=== PATIENT | female | born 1970 | race Two or more races ===

== ENCOUNTER 2023-12-30 16:20 | Inpatient (IN) | payer MEDICAID, OTHER ==
[~2023-12-30] VITALS: Ht 157.5 cm; Wt 65.0 kg
[2023-12-30 17:34] LABS: Urine Bacteria FEW /hpf (None Seen); Urine Blood TRACE /uL (Negative); Urine Budding Yeast FEW /hpf (None Seen); Urine Clarity Turbid (Clear); Urine Color Colorless (Yellow); Urine Protein, UAD 2+ (Negative); Urine Specific Gravity 1.006 (1.001-1.035); Urine Urobilinogen Normal (Negative); Urine WBC 71 /hpf (0 - 5)
[2023-12-30] MEDS: hydrALAZINE HCL 20 MG/ML VL IV ONE ×2 (17:34→20:35)
[2023-12-30 17:38] VITALS: PULSE 95; RESP 14; O2SAT 96
[2023-12-30 18:21] LABS: Basophils # (auto) 0.1 10 ^3/uL (0-0.2); Basophils % (auto) 0.8 % (0.0-2.0); Eosinophils # (auto) 0.1 10 ^3/uL (0-0.8); Eosinophils % (auto) 2.1 % (0.0-7.0); Hematocrit 41.3 % (36.0-46.0); Hemoglobin 14.1 g/dL (12.2-16.2); Lymphocytes # (auto) 2.2 10 ^3/uL (0.4-5.4); Lymphocytes % (auto) 32.9 % (10.0-50.0); Mean Corpuscular Hemoglobin 27.2 pg (28.0-32.0); Mean Corpuscular Hgb Conc. 34.2 g/dL (32.0-36.0); Mean Corpuscular Volume 79.6 fL (80.0-100.0); Monocytes # (auto) 0.4 10 ^3/uL (0-1.3); Monocytes % (auto) 5.3 % (0.0-12.0); Neutrophils # (auto) 3.9 10 ^3/uL (1.6-8.6); Neutrophils % (auto) 58.9 % (37.0-80.0); Platelet Count (auto) 261 10^3/uL (140-450); Red Blood Cells 5.19 10^6/uL (4.0-5.20); Red Cell Distribution Width 18.7 % (11.8-14.3); White Blood Cell 6.6 10^3/uL (4.4-10.8)
[2023-12-30 18:24] LABS: Alanine Aminotransferase 18 U/L (7-40); Albumin 4.3 g/dL (3.2-4.8); Alkaline Phosphatase 64 U/L (46-116); Anion Gap 6 (5-15); Aspartate Aminotransferase 16 U/L (13-40); Bilirubin, Total 0.5 mg/dL (0.2-1.0); Blood Urea Nitrogen 27 mg/dL (9-23); Carbon Dioxide 28 mmol/L (20-30); Chloride 106 mmol/L (98-107); Glucose 104 mg/dL (74-106); Potassium 3.2 mmol/L (3.5-5.1); Sodium 140 mmol/L (136-145); Total Protein 6.8 g/dL (5.7-8.2)
[2023-12-30] MEDS: LABETALOL HCL 20 MG/4 ML VL IV ONE (18:39)
[2023-12-30 19:55] VITALS: PULSE 85; RESP 14; O2SAT 95
[2023-12-30] MEDS: ASPirin 325 MG TAB PO ONE (20:34)
[2023-12-30] MEDS: NITROGLYCERIN 2% OINT 1GM PKG TD ONE (20:37)
[2023-12-30] MEDS: cefTRIAXone 1GM/50ML D5W 50 ML IV ONE (21:55)
[2023-12-30] MEDS: POTASSIUM EFFERVESENT TAB 25 MEQ PO ONE (21:55)
[2023-12-30] MEDS: ONDANSETRON ODT 4 MG TAB PO ONE (22:17)
[2023-12-31] MEDS: ONDANSETRON HCL 4 MG/2 ML VIAL IV ONE (00:10)
[2023-12-31] MEDS: NITROGLYCERIN 50MG/250ML 250 ML IV ONE (00:11)
[2023-12-31] MEDS ORDERED: hydrALAZINE HCL 20 MG/ML VL IV PRN (01:45)
[2023-12-31] MEDS ORDERED: DOCUSATE SOD 100 MG CAP PO PRN (01:45)
[2023-12-31] MEDS ORDERED: HYDROcodone-ACET 5/325MG TAB PO PRN (01:45)
[2023-12-31] MEDS ORDERED: ONDANSETRON HCL 4 MG/2 ML VIAL IV PRN (01:45)
[2023-12-31] MEDS: SODIUM CHLORIDE 0.9% 1,000 ML IV SCH (02:51)
[2023-12-31] MEDS: ACETAMINOPHEN 325 MG TAB PO PRN (05:14)
[2023-12-31] MEDS ORDERED: NITROGLYCERIN 0.4 MG SL TAB SL PRN (05:30)
[2023-12-31] MEDS ORDERED: MORPHINE SULFATE INJ 2 MG/ml SYRG IV PRN (05:30)
[2023-12-31 07:10] LABS: Basophils # (auto) 0 10 ^3/uL (0-0.2); Basophils % (auto) 0.5 % (0.0-2.0); Eosinophils # (auto) 0 10 ^3/uL (0-0.8); Hematocrit 37.9 % (36.0-46.0); Lymphocytes # (auto) 1.1 10 ^3/uL (0.4-5.4); Lymphocytes % (auto) 11.7 % (10.0-50.0); Mean Corpuscular Hemoglobin 27.2 pg (28.0-32.0); Mean Corpuscular Hgb Conc. 34.2 g/dL (32.0-36.0); Mean Corpuscular Volume 79.5 fL (80.0-100.0); Monocytes # (auto) 0.5 10 ^3/uL (0-1.3); Neutrophils # (auto) 7.5 10 ^3/uL (1.6-8.6); Neutrophils % (auto) 82.8 % (37.0-80.0); Platelet Count (auto) 250 10^3/uL (140-450); Red Blood Cells 4.77 10^6/uL (4.0-5.20); Red Cell Distribution Width 18.9 % (11.8-14.3); White Blood Cell 9.1 10^3/uL (4.4-10.8)
[2023-12-31 07:23] LABS: Alanine Aminotransferase 13 U/L (7-40); Albumin 4.1 g/dL (3.2-4.8); Alkaline Phosphatase 55 U/L (46-116); Anion Gap 9 (5-15); Aspartate Aminotransferase 14 U/L (13-40); BUN/Creatinine Ratio 14.1 (10.0-20.0); Blood Urea Nitrogen 22 mg/dL (9-23); Calcium 9.4 mg/dL (8.7-10.4); Carbon Dioxide 25 mmol/L (20-30); Chloride 106 mmol/L (98-107); Glucose 105 mg/dL (74-106); Potassium 3.3 mmol/L (3.5-5.1); Sodium 140 mmol/L (136-145)
[2023-12-31 07:24] LABS: Bilirubin, Total 0.6 mg/dL (0.2-1.0); Total Protein 6.6 g/dL (5.7-8.2)
[2023-12-31 07:30] VITALS: PULSE 85; RESP 16
[2023-12-31] MEDS: FAMOTIDINE (10MG/ML) 2ML VL IV SCH (09:51)
[2023-12-31] MEDS: NIFEdipine ER 30 MG TAB PO SCH ×2 (09:52→10:30)
[2023-12-31] MEDS: METOPROLOL TARTRATE 50 MG TAB PO SCH (09:52)
[2023-12-31] MEDS: POTASSIUM CHL 20 Meq TABLET PO ONE (09:53)
[2023-12-31] MEDS: ASPirin 81 mg TAB PO SCH (09:54)
[2023-12-31] MEDS ORDERED: FAMOTIDINE (10MG/ML) 2ML VL IV SCH (10:00)
[2023-12-31] MEDS ORDERED: cloNIDine 0.2 mg/24hr 7DAY PATCH TD PRN (10:30)
[2023-12-31] MEDS ORDERED: cloNIDine HCL 0.1 MG TAB PO PRN (11:00)
[2023-12-31] MEDS: hydrALAZINE HCL 25 MG TAB PO SCH (13:39)
[2023-12-31 16:10] LABS: Triglycerides 83 mg/dL (< 150)
[2023-12-31 16:11] LABS: LDL Cholesterol 135 mg/dL (< 100)
[2023-12-31 16:12] LABS: Cholesterol 200 mg/dL (< 200); HDL Cholesterol 50 mg/dL (40-59)
[2023-12-31 19:30] VITALS: PULSE 100; RESP 18; O2SAT 98
[2023-12-31 22:10] LABS: COVID19 ANTIGEN SOFIA FIA NEGATIVE (NEGATIVE); Rapid Influenza A Negative (Negative); Rapid Influenza B Negative (Negative)
[2023-12-31] MEDS: CARVEDILOL 12.5 MG TAB PO SCH (22:32)
[2023-12-31] MEDS: cefTRIAXone 1GM/50ML D5W 50 ML IV SCH (22:33)
[2024-01-01] VITALS (7 sets, daily range): BP systolic 109–138; BP diastolic 57–84; PULSE 78–91; RESP 16–18; TEMP 98–99.4; O2SAT 95–96
[2024-01-01 05:55] LABS: Basophils # (auto) 0.1 10 ^3/uL (0-0.2); Basophils % (auto) 0.5 % (0.0-2.0); Eosinophils # (auto) 0.1 10 ^3/uL (0-0.8); Eosinophils % (auto) 0.8 % (0.0-7.0); Hematocrit 37.5 % (36.0-46.0); Hemoglobin 12.6 g/dL (12.2-16.2); Lymphocytes # (auto) 2.7 10 ^3/uL (0.4-5.4); Lymphocytes % (auto) 23.9 % (10.0-50.0); Mean Corpuscular Hemoglobin 27.2 pg (28.0-32.0); Mean Corpuscular Hgb Conc. 33.7 g/dL (32.0-36.0); Mean Corpuscular Volume 80.5 fL (80.0-100.0); Monocytes # (auto) 0.7 10 ^3/uL (0-1.3); Neutrophils # (auto) 7.7 10 ^3/uL (1.6-8.6); Neutrophils % (auto) 68.8 % (37.0-80.0); Nucleated Red Blood Cells % 0.1 %; Platelet Count (auto) 254 10^3/uL (140-450); Red Blood Cells 4.65 10^6/uL (4.0-5.20); Red Cell Distribution Width 18.9 % (11.8-14.3); White Blood Cell 11.2 10^3/uL (4.4-10.8)
[2024-01-01 06:19] LABS: Alanine Aminotransferase 12 U/L (7-40); Albumin 4.1 g/dL (3.2-4.8); Alkaline Phosphatase 54 U/L (46-116); Anion Gap 8 (5-15); Aspartate Aminotransferase 12 U/L (13-40); BUN/Creatinine Ratio 11.2 (10.0-20.0); Blood Urea Nitrogen 21 mg/dL (9-23); Calcium 9.4 mg/dL (8.7-10.4); Carbon Dioxide 23 mmol/L (20-30); Chloride 108 mmol/L (98-107); Glucose 92 mg/dL (74-106); Potassium 3.7 mmol/L (3.5-5.1); Sodium 139 mmol/L (136-145)
[2024-01-01 06:20] LABS: Bilirubin, Total 0.7 mg/dL (0.2-1.0); Total Protein 6.7 g/dL (5.7-8.2)
[2024-01-01] MEDS: CARVEDILOL 12.5 MG TAB PO SCH (10:45)
[2024-01-01] MEDS: NIFEdipine ER 30 MG TAB PO SCH (10:45)
[2024-01-01] MEDS: SODIUM CHLORIDE 0.9% 1,000 ML IV SCH (11:31)
[2024-01-01] MEDS ORDERED: NIFE1TAB31 PO (13:05)
[2024-01-01] MEDS ORDERED: ATOR20TA50 PO (13:05)
[2024-01-01] MEDS ORDERED: ASPI-325 PO (13:05)
[2024-01-01] MEDS ORDERED: CEPH250C PO (14:08)
[2024-01-01] MEDS ORDERED: ATORVASTATIN 20 MG TAB PO SCH (22:00)
== END 2024-01-01 15:40 | disposition home or self-care (01) | DRG 194 ==
LOC: EDBD 16:20 → ER 16:20 → TELE 12-31 05:27 → TELE-CENTR 12-31 23:51
PROVIDERS: ADMIT Nurse Practitioner Family; ATTEND Internal Medicine
DX: I11.0 Hypertensive heart disease with heart failure (principal); N17.0 Acute kidney failure with tubular necrosis; I21.A1 Myocardial infarction type 2; I50.33 Acute on chronic diastolic (congestive) heart failure; I16.0 Hypertensive urgency; Z20.822 Contact with and (suspected) exposure to COVID-19; N39.0 Urinary tract infection, site not specified; E87.6 Hypokalemia; Z79.899 Other long term (current) drug therapy
CPT/HCPCS: 36415; 70450; 71045; 80053; 80061; 81001; 82088; 83036; 83735; 83835; 83880; 84244; 84443; 84484; 85025; 87086; 87426; 87804; 93005; 93306; 93976; 99291; G0378; J2405; J3490; Q0162

== ENCOUNTER 2024-05-09 17:24 | Inpatient (IN) | payer MEDICAID ==
[~2024-05-09] VITALS: Ht 157.5 cm; Wt 65.9 kg
[~2024-05-09 17:24] MED LIST: ASPI-325 PO; ATOR20TA50 PO; CEPH250C PO; NIFE1TAB31 PO
--- NOTE | 2024-05-09 17:47 | ED.PDOC ---
HPI Comments 53 y/o F brought in by ambulance presents to the ED for CC of chest pain. Per EMS, emergency medical services were called to [facility] due to patient having a hypertensive crisis with associated symptoms of chest pain, SOB, palpitations, and blurred vision [id number]. EMS relays that patient blood pressure upon arrival to scene was 216/119: 1 nitrile and aspirin was given en route to ED. Patient states, that symptoms began following medication which she has recently started to control her hypertension. Patient denies any social history. Patient denies fever, cough, headache or N/V/D. No other symptoms or modifying factors at this time. Time Seen by MD: 17:20 Primary Care Provider: [facility] Reviewed Notes: Nurses Notes, Plastic Tool Maker Notes, Medications, Allergies Allergies: Coded Allergies: NO KNOWN ALLERGIES (Unverified , 12/30/23) Home Meds Active Scripts Cephalexin (KEFLEX CAPSULE) 250 Mg Cp, 2 CAP PO BID for 5 Days, #20 CAP Prov:DENISSE JARVIS DO 01/01/24 Aspirin (Aspirin Low Dose) 81 Mg Tab, 81 MG PO DAILY for 30 Days, #30 TAB 0 Refills Prov:DENISSE JARVIS DO 01/01/24 Atorvastatin Calcium (ATORVASTATIN CALCIUM) 20 Mg Tab, 40 MG PO HS for 30 Days, #60 TAB 1 Refill Prov:DENISSE JARVIS DO 01/01/24 Nifedipine (Nifedipine Er) 30 Mg Tab, 60 MG PO DAILY for 30 Days, #60 TAB 1 Refill Prov:DNEISSE JARVIS DO 01/01/24 Information Source: Patient, Emergency Med Personnel Mode of Arrival: EMS Severity: Moderate Timing: Hours Duration: Since onset Prehospital treatment: 12 Lead EKG, Accucheck Location: Chest (L) Radiation: No Radiation Quality: Aching Onset: At Rest Cardiac Risk Factors: HTN PE Risk Factors: None History of: None Modifying Factors: Nothing Associated Signs and Symptoms: Palpitations Past Medical History PAST MEDICAL HISTORY: CKF, Denies Surgical History (Other): right foot surgery 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 History Family History Family History: Unknown Social History Smoker: Non-Smoker Alcohol: Denies ETOH Use Drugs: Denies Drug Use Lives In: Home Constitutional: denies: chills, diaphoresis, fatigue, fever, malaise, sweats, weakness, others EENTM: denies: blurred vision, double vision, ear bleeding, ear discharge, ear drainage, ear pain, ear ringing, eye pain, eye redness, hearing loss, mouth pain, mouth swelling, nasal discharge, nose bleeding, nose congestion, nose pain, photophobia, tearing, throat pain, throat swelling, voice changes, others Respiratory: denies: cough, hemoptysis, orthopnea, SOB at rest, shortness of breath, SOB with excertion, stridor, wheezing, others Cardiovascular: reports: chest pain, palpitations; denies: dizzy spells, diaphoresis, Dyspnea on exertion, edema, irregular heart beat, left arm pain, lightheadedness, PND, syncope, others Gastrointestinal: denies: abdomen distended, abdominal pain, blood streaked bowels, constipated, diarrhea, dysphagia, difficulty swallowing, hematemesis, melena, nausea, poor appetite, poor fluid intake, rectal bleeding, rectal pain, vomiting, others Genitourinary: denies: abnormal vagina bleeding, burning, dyspareunia, dysuria, flank pain, frequency, hematuria, incontinence, pain, , vagina discharge, urgency, others Neurological: denies: dizziness, fainting, headache, left sided numbness, left sided weakness, numbness, paresthesia, pre-existing deficit, right sided numbness, right sided weakness, seizure, speech problems, tingling, tremors, weakness, others Musculoskeletal: denies: back pain, gout, joint pain, joint swelling, muscle pain, muscle stiffness, neck pain, others Integumetry: denies: bruises, change in color, change in hair/nails, dryness, laceration, lesions, lumps, rash, wounds, others Allergic/Immunocompromised: denies: Difficulty Healing, Frequent Infections, Hives, Itching, others Hematologic/Lymphatic: denies: anemia, blood clots, easy bleeding, easy bruising, swollen glands, others Endocrine: denies: excessive hunger, excessive sweating, excessive thirst, excessive urination, flushing, intolerance to cold, intolerance to heat, unexplained weight gain, unexplained weight loss, others Psychiatric: denies: anxiety, bipolar disorder, depression, hopeless, panic disorder, schizophrenia, sleepless, suicidal, others All Other Systems: Reviewed and Negative Physical Exam General Appearance: Mild Distress HEENT: Normal ENT Inspection, Pharynx Normal, TMs Normal Neck: Full Range of Motion, Non-Tender, Normal, Normal Inspection Respiratory: Chest Non-Tender, Lungs Clear, No Accessory Muscle Use, No Respiratory Distress, Normal Breath Sounds Cardiovascular: No Edema, No JVD, No Murmur, No Gallop, Normal Peripheral Pulses, Regular Rate/Rhythm Breast Exam: Deferred Gastrointestinal: No Organomegaly, Non Tender, No Pulsatile Mass, Normal Bowel Sounds, Soft Genitalia: Deferred Pelvic: Deferred Rectal: Deferred Extremities: No calf tenderness, Normal capillary refill, Normal inspection, Normal range of motion, Non-tender, No pedal edema Musculoskeletal : Apperance: Normal Neurologic: Alert, gateman II-XII nml as Tested, No Motor Deficits, Normal Affect, Normal Mood, No Sensory Deficits Cerebellar Function: Normal Reflexes: Normal Skin: Dry, Normal Color, Warm Lymphatic: No Adenopathy EKG EKG : Pulse Rate (adult): 78 [place]: Normal Cardiac Rhythm: NSR Block: None Hypertrophy: LVH ST: Normal Was a procedure done? Was a procedure done?: No CP Differential Dx Differential Diagnosis: N/A Differential Diagnosis: HTN Accelerated Differential Diagnosis: Angina, Chest Wall Pain, Costochondritis X-Ray, Labs, Meds, VS Vital Signs Date Time Temp Pulse Resp B/P (MAP) Pulse Ox O2 Delivery O2 Flow Rate FiO2 05/09/24 20:27 75 05/09/24 18:37 81 05/09/24 17:47 78 05/09/24 17:31 99 Room Air* 0 21 05/09/24 17:31 97.7 82 18 178/114 (135) 99 05/09/24 17:26 78 Lab Test 05/09/24 19:00 05/09/24 17:39 Range/Units Troponin I High Sensitivity 123 *H 125 *H </=34 ng/L White Blood Count 7.4 4.4-10.8 10^3/uL Red Blood Count 5.25 H 4.0-5.20 10^6/uL Hemoglobin 15.1 12.2-16.2 g/dL Hematocrit 44.8 36.0-46.0 % Mean Corpuscular Volume 85.4 80.0-100.0 fL Mean Corpuscular Hemoglobin 28.8 28.0-32.0 pg Mean Corpuscular Hemoglobin Concent 33.7 32.0-36.0 g/dL Red Cell Distribution Width 15.4 H 11.8-14.3 % Platelet Count 325 140-450 10^3/uL Mean Platelet Volume 8.4 6.9-10.8 fL Neutrophils (%) (Auto) 51.5 37.0-80.0 % Lymphocytes (%) (Auto) 29.0 10.0-50.0 % Monocytes (%) (Auto) 5.9 0.0-12.0 % Eosinophils (%) (Auto) 12.6 H 0.0-7.0 % Basophils (%) (Auto) 1.0 0.0-2.0 % Neutrophils # (Auto) 3.8 1.6-8.6 10 ^3/uL Lymphocytes # (Auto) 2.1 0.4-5.4 10 ^3/uL Monocytes # (Auto) 0.4 0-1.3 10 ^3/uL Eosinophils # (Auto) 0.9 H 0-0.8 10 ^3/uL Basophils # (Auto) 0.1 0-0.2 10 ^3/uL Nucleated Red Blood Cells 0.2 % Sodium Level 140 136-145 mmol/L Potassium Level 3.1 L 3.5-5.1 mmol/L Chloride Level 104 98-107 mmol/L Carbon Dioxide Level 25 20-31 mmol/L Anion Gap 11 5-15 Blood Urea Nitrogen 27 H 9-23 mg/dL Creatinine 1.31 H 0.550-1.02 mg/dL Glomerular Filtration Rate Calc 49 >90 mL/min BUN/Creatinine Ratio 20.6 H 10.0-20.0 Serum Glucose 89 74-106 mg/dL Calcium Level 10.4 8.7-10.4 mg/dL Magnesium Level 2.2 1.6-2.6 mg/dL CXR: FINDINGS: Lines and Tubes: None Lungs: No focal consolidation. Pleura: No effusion. No pneumothorax. Cardiomediastinal contours: Unremarkable Bones: No acute osseous abnormality. IMPRESSION: No acute cardiopulmonary disease. ATED BY: EMELI SAGE DO DICTATED DATE/TIME: 05/09/241823 SIGNED BY: EMELI SAGE DO SIGNED DATE/TIME: 01/21/25 1824 CC: The 1st troponin came back at 125 The 2nd troponin came back at 123 The patient's CBC is within normal limits The chemistry panel shows a potassium of 3.1 The rest of the chemistry panel is within normal limits The patient was being admitted to the hospitalist A cardiology consult will be obtained [facility] has been contacted and they have given us authorization for admitting this patient The authorization #[id number] The patient is being admitted Images Reviewed?: Images reviewed and evaluated by me Time of 1ST Reevaluation: 17:50 Reevaluation 1ST: Unchanged Patient Education/Counseling: Diagnosis, Treatment, Prognosis Family Education/Counseling: No Family Present Departure 1 Departure Time of Disposition: 20:29 Impression: Primary Impression: Acute myocardial ischemia Additional Impression: Elevated troponin Disposition: ADMITTED INPATIENT Admit to: [facility] Condition: Fair Critical Care Note Critical Care Time?: Yes (45 min-critical care time only) Stability Stability form required: Yes Unstable for transfer: Telemetry monitoring (Telemetry monitoring required), ED Physician Assesment (Clinical assesment) Heart Score Heart Score: Heart Score Response (Comments) Value History Moderate Suspicious 1 EKG Repolarization Disturb 1 Age 45-64 1 Risk Factors 1 or 2 risk factors 1 Troponin 1-2 x's Normal limit 1 Total 5 I personally scribed for LIS ORANTES MD ([email or web address]) on 05/09/24 at 17:47. Electronically submitted by Caity Asencio ([email or web address]). I personally scribed for LIS ORANTES MD ([email or web address]) on 05/09/24 at 18:57. Electronically submitted by Caity Asencio ([email or web address]). LIS ORANTES MD May 09, 2024 17:47
[2024-05-09 18:18] LABS: Basophils # (auto) 0.1 10 ^3/uL (0-0.2); Chloride 104 mmol/L (98-107); Eosinophils # (auto) 0.9 10 ^3/uL (0-0.8); Eosinophils % (auto) 12.6 % (0.0-7.0); Hematocrit 44.8 % (36.0-46.0); Hemoglobin 15.1 g/dL (12.2-16.2); Lymphocytes # (auto) 2.1 10 ^3/uL (0.4-5.4); Mean Corpuscular Hemoglobin 28.8 pg (28.0-32.0); Mean Corpuscular Hgb Conc. 33.7 g/dL (32.0-36.0); Mean Corpuscular Volume 85.4 fL (80.0-100.0); Monocytes # (auto) 0.4 10 ^3/uL (0-1.3); Monocytes % (auto) 5.9 % (0.0-12.0); Neutrophils # (auto) 3.8 10 ^3/uL (1.6-8.6); Neutrophils % (auto) 51.5 % (37.0-80.0); Nucleated Red Blood Cells % 0.2 %; Platelet Count (auto) 325 10^3/uL (140-450); Red Blood Cells 5.25 10^6/uL (4.0-5.20); Red Cell Distribution Width 15.4 % (11.8-14.3); Sodium 140 mmol/L (136-145); White Blood Cell 7.4 10^3/uL (4.4-10.8)
[2024-05-09 18:19] LABS: Anion Gap 11 (5-15); Calcium 10.4 mg/dL (8.7-10.4); Carbon Dioxide 25 mmol/L (20-31)
[2024-05-09 18:24] LABS: BUN/Creatinine Ratio 20.6 (10.0-20.0); Glucose 89 mg/dL (74-106)
[2024-05-09 18:25] LABS: Magnesium 2.2 mg/dL (1.6-2.6)
--- NOTE | 2024-05-09 18:26 | DVH ---
CHEST RADIOGRAPH Indication: cp Technique: Single frontal view of the chest was obtained Comparison: XY CHEST PORTABLE on DOS: 12/30/23 FINDINGS: Lines and Tubes: None Lungs: No focal consolidation. Pleura: No effusion. No pneumothorax. Cardiomediastinal contours: Unremarkable Bones: No acute osseous abnormality. IMPRESSION: No acute cardiopulmonary disease.
[2024-05-09 18:32] LABS: Blood Urea Nitrogen 27 mg/dL (9-23); Potassium 3.1 mmol/L (3.5-5.1)
--- NOTE | 2024-05-09 19:15 | ECG ---
[facility] Test Date: 2024-05-09 Test Time: 18:37:43 Pat Name: NOAH FLOYD Department: ER Room: [address] [place] [address] Gender: F Garland Maker: NESTOR : 1970 Requested By: LIS ORANTES Order Number: [id number] Reading MD: Mao Vazquez Measurements Intervals [place] Rate: 81 P: 24 MI: 146 QRS: 6 QRSD: 95 T: 239 QT: 409 QTc: 475 Interpretive Statements Sinus rhythm LVH with secondary repolarization abnormality Baseline wander in lead(s) I,II,aVR,aVF,V5,V6 Electronically Signed On 05-11-2024 16:40:58 PST by Mao Vazquez Please click the below link to view image of tracing.
--- NOTE | 2024-05-09 20:46 | ECG ---
[facility] Test Date: 2024-05-09 Test Time: 20:27:16 Pat Name: NOAH FLOYD Department: ER Room: Gender: F Ict Sales Assistant: ER : 1970 Requested By: LIS ORANTES Order Number: [id number] Reading MD: Measurements Intervals [place] Rate: 75 P: 42 [place]: 148 QRS: 34 QRSD: 97 T: 256 QT: 440 QTc: 492 Interpretive Statements Sinus rhythm LVH with secondary repolarization abnormality Borderline prolonged QT interval Please click the below link to view image of tracing.
[2024-05-09] MEDS: POTASSIUM CHL 20 Meq TABLET PO ONE (21:53)
[2024-05-09 21:58] VITALS: PULSE 94; TEMP 98.7
[2024-05-09] MEDS: cloNIDine HCL 0.1 MG TAB PO ONE (22:09)
[2024-05-09 23:00] VITALS: BP 175/95; RESP 18; O2SAT 96
--- NOTE | 2024-05-09 23:28 | DVHHPRES ---
History of Present Illness Resident Creating Document: LARS GOMEZ RESIDENT History of Present Illness Patient is a 53-year-old female with past medical history of hypertension, who was brought in by ambulance while she was attending her appointment at [place] [facility] for elevated blood pressure. Per patient, around 1:00 p.m. on 05/09/2024 she started experiencing headache, chest discomfort, blurry vision, palpitations and nausea, this was after she took her p.m. medication hydralazine 50 mg. Around 4:00 p.m. later that day patient tended her appointment at [facility] where she was noted to have a blood pressure of 216/119 and she was subsequently sent to the [facility]. Patient notes that she is following with a retail analyst for her hypertension and was told 1 of her kidneys is smaller than the other. Moreover, patient reports having skipped dose of her antihypertensive medication (hydralazine, chlorthalidone, losartan) over the weekend as she was traveling. In the ER patient was noted to have a blood pressure of 185/101, she was given a 1 time dose of clonidine p.o.. On review of systems she is complaining of fatigue, shortness of breath on exertion, dyspnea, palpitations, nausea. Serial troponins were 125, 123, 151 Past Medical History Hypertension Past Surgical History Right foot surgery Smoke: No ALCOHOL: none Drugs: None Lives: with Family Review of Systems Constitutional: Yes: Malaise; No: Fever, Chills, Sweats, Weakness, Other Eyes: Vision change; No: Pain, Conjunctivae inflammation, Eyelid inflammation, Other, Redness ENT: Nose discharge, Nose congestion, Throat pain; No: Ear pain, Ear discharge, Nose pain, Mouth pain, Mouth swelling, Throat swelling, Other Respiratory: SOB with excertion; No: Cough, Dry, Shortness of breath, Wheezing, Hemoptysis, Pleuritic Pain, Sputum, Wheezing, Other Cardiovascular: Palpitations; No: Chest Pain, Orthopnea, Paroxysmal Noc. Dyspnea, Edema, Lt Headedness, Other Gastrointestinal: Nausea; No: Vomiting, Abdominal Pain, Diarrhea, Constipation, Melena, Hematochezia, Other Genitourinary: No Dysuria, No Frequency, No Incontinence, No Hematuria, No Retention, No Other Musculoskeletal: No: other, neck pain, shoulder pain, arm pain, back pain, hand pain, leg pain, foot pain Skin: No: Rash, Lesions, Jaundice, Bruising, Other Neurological: No: Weakness, Numbness, Incoordination, Change in speech, Confusion, Seizures, Other Allergies: Coded Allergies: NO KNOWN ALLERGIES (Unverified , 12/30/23) Exam Vital Signs Vital Signs Date Time Temp Pulse Resp B/P (MAP) Pulse Ox O2 Delivery O2 Flow Rate FiO2 05/09/24 23:01 175/95 05/09/24 23:00 18 96 05/09/24 21:58 98.7 94 98.7 05/09/24 17:31 Room Air* 0 21 General Appearance: Alert, Oriented X3, Cooperative, No acute distress HEENT: Atraumatic, PERRLA, EOMI, Mucous membr. moist/pink Respiratory: Clear to auscultation, Normal air movement Cardiovascular: Regular rate, Normal S1, Normal S2, No murmurs Abdominal: Normal bowel sounds, Soft, No tenderness Extremities: No clubbing, No cyanosis, No edema, Normal pulses Skin: No rashes, No breakdown, No significant lesion Neuro: Normal gait, Normal speech, Strength at 5/5 X4 ext, Normal tone, Sensation intact Psych/Mental Status: Mental status NL, Mood NL Labs/Xrays Labs Test 05/09/24 21:05 05/09/24 17:39 Range/Units Troponin I High Sensitivity 131 *H </=34 ng/L White Blood Count 7.4 4.4-10.8 10^3/uL Red Blood Count 5.25 H 4.0-5.20 10^6/uL Hemoglobin 15.1 12.2-16.2 g/dL Hematocrit 44.8 36.0-46.0 % Mean Corpuscular Volume 85.4 80.0-100.0 fL Mean Corpuscular Hemoglobin 28.8 28.0-32.0 pg Mean Corpuscular Hemoglobin Concent 33.7 32.0-36.0 g/dL Red Cell Distribution Width 15.4 H 11.8-14.3 % Platelet Count 325 140-450 10^3/uL Mean Platelet Volume 8.4 6.9-10.8 fL Neutrophils (%) (Auto) 51.5 37.0-80.0 % Lymphocytes (%) (Auto) 29.0 10.0-50.0 % Monocytes (%) (Auto) 5.9 0.0-12.0 % Eosinophils (%) (Auto) 12.6 H 0.0-7.0 % Basophils (%) (Auto) 1.0 0.0-2.0 % Neutrophils # (Auto) 3.8 1.6-8.6 10 ^3/uL Lymphocytes # (Auto) 2.1 0.4-5.4 10 ^3/uL Monocytes # (Auto) 0.4 0-1.3 10 ^3/uL Eosinophils # (Auto) 0.9 H 0-0.8 10 ^3/uL Basophils # (Auto) 0.1 0-0.2 10 ^3/uL Nucleated Red Blood Cells 0.2 % Sodium Level 140 136-145 mmol/L Potassium Level 3.1 L 3.5-5.1 mmol/L Chloride Level 104 98-107 mmol/L Carbon Dioxide Level 25 20-31 mmol/L Anion Gap 11 5-15 Blood Urea Nitrogen 27 H 9-23 mg/dL Creatinine 1.31 H 0.550-1.02 mg/dL Glomerular Filtration Rate Calc 49 >90 mL/min BUN/Creatinine Ratio 20.6 H 10.0-20.0 Serum Glucose 89 74-106 mg/dL Calcium Level 10.4 8.7-10.4 mg/dL Magnesium Level 2.2 1.6-2.6 mg/dL Assessment/Plan Assessment/Plan Hypertensive emergency Hypertensive encephalopathy NSTEMI likely type 2 due to above - ordered head CT - CXR: No acute cardiopulmonary disease. - IV labetalol 10 mg once - clonidine 0.2mg po once - ordered BNP, TSH, COVID and influenza testing NARA likely hemodynamically mediated/VMN - monitor Hypokalemia - repleted Goals of care: Full code, discussed for >16 minutes on 05/09/2024 Plan discussed with patient Plan discussed with Dr. Goode Plan discussed with: Patient, Other (RN) My Orders Orders - LARS GOMEZ RESIDENT Procedure Category Date Status Time Admit ADMIT 05/09/24 Verified 23:21 Code Status CODE 05/09/24 Verified 23:21 Vital Signs [facility] 05/09/24 Verified 23:21 Notify Of Changes [facility] 05/09/24 Verified From Base 23:21 Advance Directive [facility] 05/09/24 Verified 23:21 Urinalysis LAB 05/09/24 Verified 23:21 Lipid Panel LAB 05/09/24 Verified 23:21 Patient Condition ORDERS 05/09/24 Verified 23:21 Allergies LEXI 05/09/24 Verified 23:21 Drug Screen LAB 05/09/24 Verified 23:21 Notify Of Changes LEXI 05/09/24 Verified From Base 23:21 B-Type Natriuretic LAB 05/09/24 Verified Peptide 23:21 Thyroid Stimulating LAB 05/09/24 Verified Hormone 23:21 Chest Portable XY 05/09/24 Verified 23:21 Covid19 Antigen Marylu LAB 05/09/24 Verified Rapid Influenza A&B LAB 05/09/24 Verified 23:21 Beta Hcg, Quantitative LAB 05/09/24 Verified 23:21 Labetalol Hcl PHA 05/09/24 Verified (Labetalol Hcl) 23:30 Date of Service: May 09, 2024 Billing Provider: JEET GOODE MD Common Visit Codes: [id number] INP/OBS CARE (HIGH) LARS GOMEZ RESIDENT May 09, 2024 23:27 JEET GOODE MD May 10, 2024 18:14
[2024-05-09] MEDS ORDERED: LABETALOL HCL 20 MG/4 ML VL IV ONE (23:30)
[2024-05-10] LABS: Beta HCG, Quantitative 1.2 mIU/mL (1.5-4.2)
[2024-05-10 00:03] LABS: Thyroid Stimulating Hormone 10.52 uIU/mL (0.55-4.78)
[2024-05-10 00:14] LABS: Triglycerides 81 mg/dL (< 150)
[2024-05-10 00:17] LABS: Cholesterol 237 mg/dL (< 200); HDL Cholesterol 64 mg/dL (40-59); LDL Cholesterol 162 mg/dL (< 100)
--- NOTE | 2024-05-10 04:29 | DVHDSRES ---
Discharge Summary Date of Admission Resident Creating Document: LARS GOMEZ RESIDENT May 09, 2024 at 23:21 Date of Discharge: May 10, 2024 Admitting Diagnosis Hypertensive emergency Labs/Diagnostic Data: Laboratory Results Test 05/09/24 21:05 05/09/24 17:39 Troponin I High Sensitivity 131 ng/L (</=34) Triglycerides Level 81 mg/dL (< 150) Cholesterol Level 237 mg/dL (< 200) LDL Cholesterol 162 mg/dL (< 100) HDL Cholesterol 64 mg/dL (40-59) Thyroid Stimulating Hormone (TSH) 10.52 uIU/mL (0.55-4.78) Beta HCG, Quantitative 1.2 mIU/mL (1.5-4.2) White Blood Count 7.4 10^3/uL (4.4-10.8) Red Blood Count 5.25 10^6/uL (4.0-5.20) Hemoglobin 15.1 g/dL (12.2-16.2) Hematocrit 44.8 % (36.0-46.0) Mean Corpuscular Volume 85.4 fL (80.0-100.0) Mean Corpuscular Hemoglobin 28.8 pg (28.0-32.0) Mean Corpuscular Hemoglobin Concent 33.7 g/dL (32.0-36.0) Red Cell Distribution Width 15.4 % (11.8-14.3) Platelet Count 325 10^3/uL (140-450) Mean Platelet Volume 8.4 fL (6.9-10.8) Neutrophils (%) (Auto) 51.5 % (37.0-80.0) Lymphocytes (%) (Auto) 29.0 % (10.0-50.0) Monocytes (%) (Auto) 5.9 % (0.0-12.0) Eosinophils (%) (Auto) 12.6 % (0.0-7.0) Basophils (%) (Auto) 1.0 % (0.0-2.0) Neutrophils # (Auto) 3.8 10 ^3/uL (1.6-8.6) Lymphocytes # (Auto) 2.1 10 ^3/uL (0.4-5.4) Monocytes # (Auto) 0.4 10 ^3/uL (0-1.3) Eosinophils # (Auto) 0.9 10 ^3/uL (0-0.8) Basophils # (Auto) 0.1 10 ^3/uL (0-0.2) Nucleated Red Blood Cells 0.2 % Sodium Level 140 mmol/L (136-145) Potassium Level 3.1 mmol/L (3.5-5.1) Chloride Level 104 mmol/L (98-107) Carbon Dioxide Level 25 mmol/L (20-31) Anion Gap 11 (5-15) Blood Urea Nitrogen 27 mg/dL (9-23) Creatinine 1.31 mg/dL (0.550-1.02) Glomerular Filtration Rate Calc 49 mL/min (>90) BUN/Creatinine Ratio 20.6 (10.0-20.0) Serum Glucose 89 mg/dL (74-106) Calcium Level 10.4 mg/dL (8.7-10.4) Magnesium Level 2.2 mg/dL (1.6-2.6) B-Type Natriuretic Peptide 51.33 pg/mL (0-100) Other Laboratory Tests 05/09/24 17:39 Brief Hx & Hospital Course: Patient is a 53-year-old female with past medical history of hypertension, who was brought in by ambulance while she was attending her appointment at [place] for elevated blood pressure. Per patient, around 1:00 p.m. on 05/09/2024 she started experiencing headache, chest discomfort, blurry vision, palpitations and nausea, this was after she took her p.m. medication hydralazine 50 mg. Around 4:00 p.m. later that day patient tended her appointment at [facility] where she was noted to have a blood pressure of 216/119 and she was subsequently sent to the [facility]. 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 Moreover, patient reports having skipped dose of her antihypertensive medication (hydralazine, chlorthalidone, losartan) over the weekend as she was traveling. In the ER patient was noted to have a blood pressure of 185/101, she was given a 1 time dose of clonidine p.o.. On review of systems she is complaining of fatigue, shortness of breath on exertion, dyspnea, palpitations, nausea. Serial troponins were 125, 123, 151 Patient was given clonidine 0.2mg po, IV labetalol 10mg once. Head CT, CXR, BNP, TSH were ordered. However, patient left AMA before further evaluation and management could be completed. Condition at Discharge: Undetermined Final Diagnosis/Problems List Hypertensive emergency Hypertensive encephalopathy NSTEMI likely type 2 due to above NARA likely hemodynamically mediated/VMN Hypokalemia Discharge Disposition: AMA Discharge Statement: "Patient was advised to return to the ER or call 911 if any headaches, dizziness, shortness of breath, chest pain, abdominal pain, bleeding, fevers, or worsening of medical condition. Patient was counseled about treatment plan, medications, possible side effects, patientverbalized understanding. All questions were answered to the best of my ability. This discharge took greater then 30 minutes in planning, reviewing documentation, counseling the patient, and discussing with other team members." ASSESSMENT ASSESSMENT Assessment Date of Service: May 10, 2024 Billing Provider: JEET HERNANDEZ MD Common Visit Codes: 90420-KGW/OBS DISCH DAY <30MIN LARS GOMEZ May 10, 2024 04:29 JEET HERNANDEZ MD May 10, 2024 18:14
--- NOTE | 2024-05-10 08:55 | ECG ---
[facility] Test Date: 2024-05-09 Test Time: 17:26:17 Pat Name: NOAH FLOYD Department: ER Room: [address] [place] [address] A Gender: F X Ray Service Engineer: NESTOR : 1970 Requested By: LIS ORANTES Order Number: [id number] Reading MD: Mao Vazquez Measurements Intervals [place] Rate: 78 P: 31 [place]: 144 QRS: 20 QRSD: 97 T: 261 QT: 421 QTc: 480 Interpretive Statements Sinus rhythm LVH with secondary repolarization abnormality Electronically Signed On 05-11-2024 16:40:38 PST by Mao Vazquez Please click the below link to view image of tracing.
== END 2024-05-10 00:17 | disposition left against medical advice (07) | DRG 199 ==
LOC: EDBD 17:24 → ER 17:32 → TELE 23:21
PROVIDERS: ADMIT Nurse Practitioner Acute Care; ATTEND Nurse Practitioner Acute Care
DX: I16.1 Hypertensive emergency (principal); N17.0 Acute kidney failure with tubular necrosis; I21.A1 Myocardial infarction type 2; I67.4 Hypertensive encephalopathy; E87.6 Hypokalemia; R79.89 Other specified abnormal findings of blood chemistry; Z53.29 Procedure and treatment not carried out because of patient's decision for other reasons; Z79.2 Long term (current) use of antibiotics; Z79.82 Long term (current) use of aspirin; Z79.899 Other long term (current) drug therapy
CPT/HCPCS: 36415; 71045; 80048; 80061; 83735; 83880; 84443; 84484; 84702; 85025; 93005; 99291; G0378